=== PATIENT | female | born 1965 | race Caucasian/White ===

== ENCOUNTER 2017-01-27 21:17 | Observation (INO) ==
--- NOTE | 2017-01-27 21:50 | Emergency Department Note ---
Disposition Clinical Impression: Palpitations Syncope Qualifiers: Syncope type: unspecified Qualified Code(s): R55 - Syncope and collapse Chest pain Qualifiers: Chest pain type: unspecified Qualified Code(s): R07.9 - Chest pain, unspecified Disposition: Admitted As Inpatient Condition: Good Referrals: Unassigned,Provider [Non-Partnered Physician] - Forms: ED Satisfaction Letter Time of Disposition: 23:46 General Adult HPI - General Chief complaint: ED Chest Pain Stated complaint: "CP/SOB/Syncope" Time Seen by Provider: 01/27/17 21:23 Nursing Notes Reviewed: Yes Vital Signs Reviewed: Yes - History of Present Illness HPI Narrative: Female patient presenting to the emergency department with a sudden onset of syncope prior to arrival here. [place] like her heart was racing she developed chest pain and then blacked out. Daughter states that she was able to feel pulsatile time she was out and she was able to arouse the patient with a deep sternal rub however she would quickly shut her eyes. - Related Data Home Medications Medication Instructions Recorded Confirmed HYDROcodone/Acet 5/325 mg [[place] 0.5 tab PO BID PRN 01/27/17 01/27/17 5-325 mg] Ibuprofen [Motrin] 200 mg PO Q4HR PRN 01/27/17 01/27/17 Allergies Allergy/AdvReac Type Severity Reaction Status Date / Time meperidine [From Demerol] Allergy Vomiting Verified 01/27/17 22:50 All systems ED: reviewed and negative except as stated. Constitutional: Reports: weakness (For 3 weeks.). Denies: fever, chills Cardiovascular: Reports: chest pain (Intermittent for the past week.), palpitations (Intermittent for the past week.), syncope (One episode today.). Denies: dyspnea on exertion Respiratory: Denies: cough, dyspnea Gastrointestinal: Reports: nausea (Associated with the syncope.). Denies: abdominal pain, vomiting Genitourinary: Denies: urgency, dysuria, frequency, hematuria Musculoskeletal: Denies: back pain, neck pain Integumentary: Denies: rash, abrasion Neurological: Denies: headache Past Medical History - Past Medical History Attestation: Yes The following information was validated with the patient. Medical history: Reports: GERD, other (SVT, possible ablation in the ) Surgical history: Reports: cholecystectomy, hysterectomy Psychiatric history: Reports: no psych history - Social History Smoking Status: Never smoker Smokeless Tobacco Status: No Alcohol use: Reports: none Drug use: Reports: none Physical Exam - General Limitations: no limitations General appearance: alert, in no apparent distress - Head Head exam: atraumatic, normocephalic - Eye Eye exam: Present: normal appearance. Absent: PERRL, EOMI - ENT ENT exam: normal exam, normal oropharynx, mucous membranes moist - Neck Neck exam: Present: normal inspection, full ROM, trachea midline - Chest Chest inspection: Present: normal inspection, symmetric chest wall rise - Extremities Exam Extremities exam: Present: normal inspection, full ROM, normal capillary refill. Absent: tenderness, pedal edema - Back Exam Back exam: Present: normal inspection, full ROM. Absent: tenderness, CVA tenderness (R), CVA tenderness (L) - Neurological Exam Neurological exam: Present: alert, oriented X3 - Psychiatric Psychiatric exam: Present: normal affect, normal mood - Skin Skin exam: Present: warm, dry, intact, normal color. Absent: rash, cyanosis Course Course Narrative: Female patient presenting to the emergency department with a several week history of generalized weakness. 1 week history of left-sided chest pain. States that she was sitting at her house talking to her daughter whenever she felt the chest pain and felt like her heart was fluttering. She then syncopized. Daughter states that she was able to arouse patient with a sternal rub and she had a pulse the whole time however she would not respond very well. He then called 911. Patient is alert and oriented 3 on my exam. She is acting appropriately. Daughter states that whenever he came into the ED sheet the patients speech was a little sluggish. So we got a CT of the patient's head. This was normal. Patient's chest x-ray was normal. Her lab work is grossly unremarkable. However she does have a history of SVT. She has no other cardiac history that she is aware of. We will admit patient to the hospital for new onset syncope associated with heart palpitations. Patient states she did take a 324 mg baby aspirin before she came in. - Reevaluation(s) Reevaluation #1: Patient's cardiac workup is normal. She has had no episodes of palpitations while she is here. We will admit patient for new onset syncope as well as palpitations. Patient is agreeable to admission. Time: 23:44 - Consultations Consultation #1: Dr Mac accepted patient in stable condition. Time: 23:45 Vital Signs Temperature 0 F L 01/27/17 21:24 Pulse Rate 90 01/27/17 21:24 Respiratory Rate 16 01/27/17 21:24 Blood Pressure 162/97 01/27/17 21:24 O2 Sat by Pulse Oximetry 100 01/27/17 21:24 Temperature 0 F L 01/27/17 21:24 Pulse Rate 89 01/27/17 22:55 Respiratory Rate 18 01/27/17 22:55 Blood Pressure 129/80 01/27/17 22:55 O2 Sat by Pulse Oximetry 98 01/27/17 22:55 Oxygen Delivery Oxygen Delivery Room Air Medical Decision Making - Medical Records Medical records reviewed: Yes I reviewed the patient's medical records. - Lab Data Lab results reviewed: Yes I reviewed the patient's lab results. Result diagrams: 01/27/17 22:06 01/27/17 22:06 Lab Results 01/27/17 01/27/17 01/27/17 Range/Units 22:06 22:06 22:06 WBC 7.3 (4.3-11.1) K/mcL RBC 4.75 (3.82-4.97) M/mcL Hgb 13.3 (11.5-15.4) g/dL Hct 40.3 (35.3-44.9) % MCV 84.8 (83.0-100.0) fL MCH 28.0 (28.0-33.3) pg MCHC 33.0 (31.6-35.5) g/dL RDW 13.9 (11.5-14.5) % Plt Count 224 (140-400) K/mcL MPV 11.0 (9.4-12.4) fL Immature Gran % 0.4 (0-4) % Seg Neutrophils % 56.4 % Lymphocytes % 32.5 % Monocytes % 8.1 % Eosinophils % 1.8 % Basophils % 0.8 % Neutrophils # 4.1 (1.6-8.9) K/mcL Lymphocytes # 2.4 (0.6-4.6) K/mcL Monocytes # 0.6 (0.0-1.3) K/mcL Eosinophils # 0.1 (0.0-0.6) K/mcL Basophils # 0.1 (0.0-0.2) K/mcL D-Dimer 302 (0-500) ng/mLFEU Sodium 142 (136-145) mEq/L Potassium 4.4 (3.5-4.5) mEq/L Chloride 106 (98-109) mEq/L Carbon Dioxide 27 (19-29) mEq/L BUN 12 (7-20) mg/dL Creatinine 0.81 (0.57-1.11) mg/dL Est GFR ( Amer) > 60 (> 60) Est GFR (Non-Af Amer) > 60 (> 60) BUN/Creatinine Ratio 15 (6-26) Glucose 104 H (70-99) mg/dL Calculated Osmolality 294 (280-300) Calcium 9.7 (8.6-10.8) mg/dL Troponin I (0-0.03) ng/mL // Range/Units 22:06 WBC (4.3-11.1) K/mcL RBC (3.82-4.97) M/mcL Hgb (11.5-15.4) g/dL Hct (35.3-44.9) % MCV (83.0-100.0) fL MCH (28.0-33.3) pg MCHC (31.6-35.5) g/dL RDW (11.5-14.5) % Plt Count (140-400) K/mcL MPV (9.4-12.4) fL Immature Gran % (0-4) % Seg Neutrophils % % Lymphocytes % % Monocytes % % Eosinophils % % Basophils % % Neutrophils # (1.6-8.9) K/mcL Lymphocytes # (0.6-4.6) K/mcL Monocytes # (0.0-1.3) K/mcL Eosinophils # (0.0-0.6) K/mcL Basophils # (0.0-0.2) K/mcL D-Dimer (0-500) ng/mLFEU Sodium (136-145) mEq/L Potassium (3.5-4.5) mEq/L Chloride (98-109) mEq/L Carbon Dioxide (19-29) mEq/L BUN (7-20) mg/dL Creatinine (0.57-1.11) mg/dL Est GFR ( Amer) (> 60) Est GFR (Non-Af Amer) (> 60) BUN/Creatinine Ratio (6-26) Glucose (70-99) mg/dL Calculated Osmolality (280-300) Calcium (8.6-10.8) mg/dL Troponin I 0.00 (0-0.03) ng/mL - Radiology Data Radiology results reviewed: Yes I reviewed the patient's radiology results. Chest X-Ray 01/27/17 21:25 IMPRESSION: No acute cardiopulmonary disease. D/ / Dane Ordoñez MD / Dane Ordoñez MD Interpreting Provider: Dane Ordoñez MD Head CT 01/27/17 21:25 IMPRESSION: No acute intracranial abnormality. D/ / Dane Ordoñez MD / Dane Ordoñez MD Interpreting Provider: Dane Ordoñez MD - EKG Data EKG #1 EKG attestation: Yes I reviewed and interpreted this EKG. EKG results narrative: Sinus tachycardia at a rate of 104. Pr interval 182. QRS 92. QT 342, QTC 402. No signs of acute ischemia. No signifigant changes since previous EKG dated . Attestation Statement - Attestation Attestation: I examined this patient and my medical decision-making was reviewed with the MOLD COOLER/PA/Advanced Practice Nurse/Resident Physician. I agree with the documented findings, disposition and treatment plan as described except to the extent set forth below. Patient emergency department with a chief complaint of chest pain. Family states they were sitting eating a chief complaint of chest pain. They state she went unresponsive shortly after. He has a history of SVT years ago. Family states that she is talking slower than normal. On examination she is pleasant conversant. She is mildly tachycardic. She does not appear to be in any distress. Lungs clear. Plan. Cardiac workup. ED workup is unremarkable. We will admit for further cardiac evaluation.
[2017-01-27 22:13] LABS: Basophils # 0.1 K/mcL (0.0-0.2); Basophils % 0.8 %; Eosinophils # 0.1 K/mcL (0.0-0.6); Eosinophils % 1.8 %; Hematocrit 40.3 % (35.3-44.9); Hemoglobin 13.3 g/dL (11.5-15.4); Immature Granulocytes % 0.4 % (0-4); Lymphocytes # 2.4 K/mcL (0.6-4.6); Lymphocytes % 32.5 %; Mean Corpuscular Volume 84.8 fL (83.0-100.0); Monocytes # 0.6 K/mcL (0.0-1.3); Monocytes % 8.1 %; Neutrophils # 4.1 K/mcL (1.6-8.9); Platelet Count 224 K/mcL (140-400); Red Blood Count 4.75 M/mcL (3.82-4.97); Red Cell Distribution Width 13.9 % (11.5-14.5); Segmented Neutrophils % 56.4 %
[2017-01-27 22:26] LABS: BUN/Creatinine Ratio 15 (6-26); Blood Urea Nitrogen 12 mg/dL (7-20); Calcium 9.7 mg/dL (8.6-10.8); Carbon Dioxide 27 mEq/L (19-29); Chloride 106 mEq/L (98-109); Glucose 104 mg/dL (70-99); Osmolality,Calculated 294 (280-300); Potassium 4.4 mEq/L (3.5-4.5); Sodium 142 mEq/L (136-145); eGFR For African Americans > 60 (> 60); eGFR For Non-African Americans > 60 (> 60)
[2017-01-28] MEDS ORDERED: Naloxone 0.4 MG/ML INJ IVP PRN (01:02)
--- NOTE | 2017-01-28 01:12 | Internal Med History&Physical ---
Date of Encounter: 01/28/17 Time of Encounter: 01:30 Assessment and Plan (1) Acute coronary syndrome Current visit: Yes Status: Acute Patient had new onset chest pains at rest, with radiation to the LUE. This is suspicious for a unstable angina/NSTEMI. Cardiac monitoring, trend troponins. Treat with aspirin and enoxaparin. Consider cardiology consultation (2) Syncope Current visit: Yes Status: Acute Pt had chest pain and syncope. Very suspicious for SVT / VT (apparently had pulse during this episode). Will obtain echocardiogra. Check TSH. Telemetry monitoring. Cardiology consultation. Qualifiers: Syncope type: unspecified Qualified Code(s): R55 - Syncope and collapse (3) Chest pain Current visit: Yes Status: Acute Suspicous for ACS / UA / NSTEMI Qualifiers: Chest pain type: unspecified Qualified Code(s): R07.9 - Chest pain, unspecified (4) Palpitations Current visit: Yes Status: Acute Possibly due to cardiac arrhythmia. Telemetry monitoring Internal Medicine - H&P: HPI Chief complaint: Chest pain Admitted From: Emergency Dept Plans for Post Hospital Care: Home History of present illness: Ms. Beckwith is a 51 year old female with past medical history significant for GERD, SVT in the . She reports intermittent left-sided chest pains, unrelated exertion for about 2 weeks. she was apparently sitting at her house talking to her daughter, when she felt the chest pain / pressure on the left side of chest, moderate in intensity, with radiation to the left upper extremity /numbness of the LUE and felt like her heart was fluttering. She felt lightheaded and apparently became unresponsive. Daughter, who was by the side held her and was able to arouse patient with a sternal rub and she had a pulse the whole time. Pt reports that she was not confused afterwards but felt that her LUE was numb. She reports exertional shortness of breath, recently and also reports feeling tired, associated with chest pain. She denies nausea or vomiting. She denies abdominal pain, dizziness, hematuria, bowel problems. She denies excess caffeine consumption prior to this episode. She was evaluated in the emergency department and CXR reported no acute cardio pulmonary disease; CT head showed no acute intracranial abnormality. Initiate troponin is negative. She is admitted to the hospitalist service for further management. Past Med Surg Social Fam HX - Past Medical History Medical history: GERD, other (SVT, possible ablation in the s) Psychiatric history: no psych history - Past Surgical History Surgical History: cholecystectomy, hysterectomy - Social History Smoking Status: Never smoker Smokeless Tobacco Status: No Alcohol use: none Drug use: none - Family History Mother History Unknown: Yes Living Status: Father Living Status: Hx Family Cardiac Disorders: Yes Internal Medicine - H&P: Meds HYDROcodone/Acet 5/325 mg [[place] 5-325 mg] 0.5 tab PO BID PRN 01/27/17 [History] Allergies meperidine [From Demerol] Allergy (Verified 01/27/17 22:50) Vomiting All Systems PM: A 10-system review of systems was performed and is negative for pertinent findings except as documented above in the HPI. - Constitutional Vitals: Temp Pulse Resp BP Pulse Ox 97.8 F 79 15 105/69 96 01/28/17 00:22 01/28/17 00:22 01/28/17 00:22 01/28/17 00:22 01/28/17 00:22 Exam: General: Not in acute distress at the time of my evaluation HEENT: Oral mucosa is moist. No conjunctival palor or scleral icterus Neck: No obvious neck swellings Lungs: Clear to auscultation Cardiac: Regular rate and rhythm. No significant murmurs. Mild left upper chest wall tenderness present Abdomen: Soft, non tender. Bowel sounds present Genitourinary: No calabrese catheter Neurological: Alert and oriented. No gross localizing deficits Psych: Not aggressive or agitated Extremities: mild leg edema Skin: No generalized rash Internal Med - H&P Results - Labs CBC & Chem 7: 01/27/17 22:06 01/27/17 22:06 - EKG Data -: EKG Interpreted by Myself EKG shows normal: sinus rhythm Rate: tachycardia - EKG Data EKG comments: QTc 402 ms 01/28/17 01:14 - Impressions ITS Impressions Chest X-Ray 01/27/17 21:25 IMPRESSION: No acute cardiopulmonary disease. D/ / Dane Ordoñez MD / Dane Ordoñez MD Interpreting Provider: Dane Ordoñez MD Head CT 01/27/17 21:25 IMPRESSION: No acute intracranial abnormality. D/ / Dane Ordoñez MD / Dane Ordoñez MD Interpreting Provider: Dane Ordoñez MD
[2017-01-28] MEDS ORDERED: *HR* HYDROcodone/Acet 5/325 mg TABLET PO PRN (01:13)
[2017-01-28] MEDS: *HR* Enoxaparin 100 MG/ML SYRINGE SQ SCH ×2 (05:59→17:21)
[2017-01-28 06:33] LABS: Hematocrit 38.5 % (35.3-44.9); Hemoglobin 12.8 g/dL (11.5-15.4); Mean Corpuscular HGB Conc 33.2 g/dL (31.6-35.5); Mean Corpuscular Hemoglobin 28.5 pg (28.0-33.3); Mean Corpuscular Volume 85.7 fL (83.0-100.0); Mean Platelet Volume 11.7 fL (9.4-12.4); Platelet Count 214 K/mcL (140-400); Red Blood Count 4.49 M/mcL (3.82-4.97); Red Cell Distribution Width 14.1 % (11.5-14.5)
[2017-01-28 06:37] LABS: Prothrombin Time 10.9 Seconds (9.4-12.1)
[2017-01-28 06:50] LABS: Chol/HDL Ratio 4.8 (0-4.9); Magnesium 2.3 mg/dL (1.6-2.6)
[2017-01-28 07:12] LABS: Thyroid Stimulating Hormone 3.002 mcIU/mL (0.350-4.840)
--- NOTE | 2017-01-28 09:41 | Cardiology Consult Note ---
<Fransico Mcdonnell - Last Filed: 01/28/17 12:34> Date of Encounter: 01/28/17 Time of Encounter: 10:00 Assessment and Plan (2) Chest pain Status: Acute Per Cardiology: Troponins negative 2. Echo showed preserved EF with normal wall motion. ECG with nonspecific changes in inferior leads. Per discussion with Dr. Sargent, we' ll proceed with exercise nuclear stress test. Further recommendations after stress test. Qualifiers: Chest pain type: unspecified Qualified Code(s): R07.9 - Chest pain, unspecified (3) Syncope Status: Acute Per Cardiology: Patient with self-reported history of basal depressor syncope any years ago. Telemetry reviewed with average heart rate 79, sinus rhythm, one brief episode of sinus tachycardia in the 120s to 130s. No significant events noted. TSH and electrolytes within normal limits. Systolic blood pressures in the 100s to 120s. Orthostatics completed with lying blood pressure 113/80 and heart rate 75 , sitting blood pressure 121/82 and heart rate 88, and standing blood pressure 119/89 and heart rate 104. Discussed and reviewed with Dr. Sargent, we'll give 1 L of fluid since had slight tachy response. Of note, reported history of SVT as well. No SVT noted on telemetry. We'll continue to monitor. Can consider Holter or event monitor at discharge. Qualifiers: Syncope type: unspecified Qualified Code(s): R55 - Syncope and collapse Discussion w patient/family: The assessment and plan as outlined above was discussed with the patient and/or family members who expressed understanding and agreement. All questions were answered. Thank you for involving us in the care of your patient. Please call with any questions. History of Present Illness Consult date: 01/28/17 Requesting physician: Carie Mac Consult reason: Syncope, CP Chief complaint: CP, Palps, Passed out History of present illness: Ms. Beckwith is a 51 year old female with a relevant past medical history of hyperlipidemia, asthma, and GERD. Patient also reports history of SVT and vasodepressor syncope from the . She denies any history of nicotine abuse. Reports family history of father with [place] in his 50s, however estranged. Cardiology consult for syncope and chest pain. Patient reports up until about 3-4 weeks ago her normal state of health. Reports treated by PCP with [facility] for bronchitis. Patient reports over the past 3-4 weeks has persistent dry nonproductive cough and overall increased fatigue.She denies any fever, chills, nausea, vomiting, diarrhea. Reports over the past few weeks has noticed intermittent episodes of chest pressure at rest as well. Patient reports yesterday evening while sitting in a chair she developed palpitations with chest tightness and short of breath. She reports her daughter came to check on her heart rate and patient "passed out". Daughter reports at that time heart rate was week and thready. Past Med Surg Social Fam HX - Past Medical History Attestation: Yes The following information was validated with the patient. Source: patient, old records reviewed, obtained from family Medical history: GERD, other (SVT, possible ablation in the ) Psychiatric history: no psych history - Past Surgical History Surgical History: cholecystectomy, hysterectomy - Social History Smoking Status: Never smoker Smokeless Tobacco Status: No Alcohol use: none Drug use: none - Family History Mother History Unknown: Yes Living Status: Father Living Status: Hx Family Cardiac Disorders: Yes Medications and Allergies HYDROcodone/Acet 5/325 mg [[place] 5-325 mg] 0.5 tab PO BID PRN 01/27/17 [History] Aspirin 81 mg PO DAILY #30 tab.chew 01/29/17 [Rx] Metoprolol XL (24 HR) Succ [Toprol Xl] 12.5 mg PO DAILY #15 tab.er.24h 01/29/17 [Rx] Allergies meperidine [From Demerol] Allergy (Verified 01/27/17 22:50) Vomiting All Systems Review: A 10-system review of systems was performed and is negative for pertinent findings except as documented above in the HPI. - Constitutional Constitutional: fatigue - Cardiovascular Cardiovascular: as per HPI, chest pain at rest, dyspnea at rest, palpitations, syncope - Respiratory Respiratory: cough Physical Examination Vital Signs, Last 4 Hours Temp Pulse Resp BP Pulse Ox 01/28/17 07:02 97.9 F 78 16 100/69 95 General: Conversant, No Apparent Distress HEENT: Atraumatic, Normocephaly, Mucus Membranes Moist Neck: No JVD, Normal carotid pulses Cardiac: Reg Rate and Rhythm, Normal S1 and S2, No Murmur Lungs: Normal Breath Sounds, No Wheeze, Rales, Rhonchi Neuro: Alert and responsive, No focal deficits noted Abdomen: Soft, Non-Tender Skin: No rashes noted on visualized skin Musculoskeletal: No Chest Wall Tenderness Extremities: No Edema, Normal Pulses Results 01/28/17 06:09 01/27/17 22:06 Lab Results Laboratory Tests 01/27/17 01/27/17 01/28/17 22:06 22:06 06:09 INR D-Dimer 302 Troponin I 0.00 0.00 LDL Cholesterol, Calc TSH 01/28/17 01/28/17 06:09 06:09 INR 1.0 D-Dimer Troponin I LDL Cholesterol, Calc 126 H TSH 3.002 Laboratory Tests 01/28/17 06:09 Magnesium 2.3 ITS Impressions Chest X-Ray 01/27/17 21:25 IMPRESSION: No acute cardiopulmonary disease. D/ / Dane Ordoñez MD / Dane Ordoñez MD Interpreting Provider: Dane Ordoñez MD Head CT 01/27/17 21:25 IMPRESSION: No acute intracranial abnormality. D/ / Dane Ordoñez MD / Dane Ordoñez MD Interpreting Provider: Dane Ordoñez MD Active Medications Acetaminophen/Hydrocodone Bitart ([place] 5-325 Mg) 0.5 tab PO BID PRN PRN Reason: Pain Stop: 07/30/17 01:14 EST Enoxaparin Sodium (Lovenox) 100 mg 1 mg/kg (100 mg) SQ Q12HR JOSE PRN Reason: Protocol Stop: 07/30/17 06:01 Last Admin: 01/28/17 05:59 Dose: 100 mg Naloxone HCl (Narcan) 0.4 mg IVP Q2MIN PRN PRN Reason: Opioid Reversal Stop: 07/30/17 01:03 EST - Imaging and Cardiology Chest Xray: report reviewed Stress Test: pending Echo: report reviewed - EKG Interpretation EKG results cardiology: personally reviewed (Sinus rhythm flipped T waves with mild ST depression noted in leads 3 and aVF-- reviewed with Dr. Sargent), other ( 24 hour telemetry reviewed with average heart rate 79, sinus rhythm, 1 episode of sinus tachycardia noted to the 120s to 130s.) Consult Discharge Plan - Plan Instructions: Metoprolol (By mouth), Aspirin (By mouth), Chest Pain (DC) Additional Instructions: Follow-up with primary care provider within one to 2 weeks, follow-up with cardiology as instructed. Keep heart rate and blood pressure log Referrals: [facility] [Provider Group] Raymond Rehman, [Primary Care Provider] - (The office will call you tomorrow to make a follow up appt.) Prescriptions: Aspirin 81 mg PO DAILY #30 tab.chew Metoprolol XL (24 HR) Succ [Toprol Xl] 12.5 mg PO DAILY #15 tab.er.24h <Romelia Sargent - Last Filed: 01/29/17 16:03> Date of Encounter: 01/29/17 Assessment and Plan Discussion w patient/family: The assessment and plan as outlined above was discussed with the patient and/or family members who expressed understanding and agreement. All questions were answered. Thank you for involving us in the care of your patient. Please call with any questions. History of Present Illness History of present illness: Ms. Beckwith is a 51 year old female All Systems Review: A 10-system review of systems was performed and is negative for pertinent findings except as documented above in the HPI. Results 01/28/17 06:09 01/27/17 22:06 - Attending Attestation I examined this patient and my medical decision-making was reviewed with the POLISHER AND BUFFER/PA/Advanced Practice Nurse/Resident Physician. I agree with the documented findings, disposition and treatment plan.
--- NOTE | 2017-01-28 12:26 | ECHO - Doppler Report ---
Echocardiogram Name: Trini Beckwith Date of Study: 01/28/2017 Date: 1965 Ht: 66.0 in Medical Record#: [id number] Age: 51 Wt: 224.0 lb Gender: Female BSA: 2.1 Order #: [id number] Location: [facility] Room #: [id number] Reading Physician: Romelia Sargent DO Dump Grader: TEODORO MonteT Ordering Physician: Arias Mac MD Primary Physician: Raymond Rehman DO Indications: Syncope Impressions: LVEF 65%. Normal left ventricular size and systolic function. There is evidence of mild diastolic dysfunction of the left ventricle. Normal right ventricular size and function. Mild mitral regurgitation. No pulmonary hypertension. Trivial pericardial effusion. No tamponade. Left Ventricular Wall Motion: Rest Echo Findings All wall segments showed normal motion. Findings: Study Quality * Technically adequate exam. ECG Findings * Normal sinus rhythm. Left Ventricle * Normal LV chamber size, wall thickness and function. * LVEF 65%. * Mild left ventricular diastolic dysfunction. Aorta * Normally sized aortic root. Left Atrium * Normal left atrial size. Mitral Valve * Normal mitral valve structure. * No mitral stenosis. * Mild mitral regurgitation. Aortic Valve * No aortic regurgitation. * Trileaflet aortic valve. * Normal aortic valve structure. * No aortic stenosis. Tricuspid Valve * Tricuspid valve not well visualized. * Trace tricuspid regurgitation. * Estimated RA pressure is 3 mmHg. * Estimated RVSP is 10 mmHg. * No pulmonary hypertension. Pulmonic Valve * Pulmonic valve is not well visualized. * No pulmonic stenosis. * No pulmonic regurgitation. Pulmonary Artery * Pulmonary artery not well visualized. Right Ventricle * Normal right ventricular structure and function. Right Atrium * Normal right atrial size. Interatrial Septum * No evidence of PFO by color Doppler. IVC * Normal IVC dimensions and inspiratory collapse. Pericardium * There is a trivial pericardial effusion present. History Measurements: BP: 100/ 69 2D Normal Values RVIDd: 2.60 cm <2.7 cm IVSd: 1.00 cm 0.6 - 1.0 cm LVIDd: 4.70 cm 3.7 - 5.6 cm LVPWd: 1.10 cm 0.6 - 1.1 cm LVIDs: 3.20 cm 1.5 - 3.6 cm AO: 2.50 cm < 4.0 cm LA: 3.40 cm 2.0 - 4.0cm %FS: 31.90 cm >25 % LA volume: 26 Mitral Valve Peak E:.56 m/sec Peak A:.81 m/sec E/A Ratio:0.7 Peak E' Lat [place]:6.34 cm/s Peak E' Med [place]:6.43 cm/s E/E' Lat Ratio:8.8 E/E' Med Ratio:8.6 Tricuspid Valve TV Regurg Peak Grad: 7.00mmHg TV Regurg Peak [place]: 1.36m/sec Updated by Romelia Sargent on 01/28/2017 12:20:04 PM electronically signed on 01/28/2017 12:20:57 PM with status of Final Wall Motion [place]: 1=Normal, 2=Hypokinesis, 3=Akinesis, 4=Dyskinesis, 5=Aneurysmal, 6=Hyperkinetic, X=Not Visualized (Blank)=Missing
[2017-01-28] MEDS ORDERED: 0.9 % Sodium Chloride 1,000 ML IVC SCH (12:45)
[2017-01-28] MEDS: Aspirin 81 MG TAB.CHEW PO SCH (16:06)
[2017-01-28] MEDS: Metoprolol XL (24 HR) Succ 25 MG TAB.ER.24H PO SCH (16:06)
[2017-01-28] MEDS ORDERED: *HR* Promethazine 25 MG/ML VIAL IVP PRN (17:57)
[2017-01-28] MEDS ORDERED: Ondansetron 4 MG/2 ML VIAL IVP PRN (17:57)
[2017-01-28] MEDS ORDERED: *HR* Morphine 2 MG/ML SYRINGE IVP PRN (17:57)
[2017-01-28] MEDS ORDERED: Acetaminophen 325 MG TABLET PO PRN (17:57)
--- NOTE | 2017-01-28 17:59 | Event Note ---
Date of Encounter: 01/28/17 Time of Encounter: 17:00 Patient seen and examined. On examination, patient sitting upright in bed conversing with her family. Patient endorses mild chest pain but states it has improved. She denies any nausea. Her shortness of breath. Chest x-ray negative. Head CT negative. Echocardiogram unremarkable with ejection fraction of 65% and mild diastolic dysfunction. Patient euvolemic on examination and denies shortness of breath. Cardiology is on board and her stress test was performed today. Plan is to evaluate stress test and possible need for electrophysiology consult tomorrow. Started on baby aspirin and beta luis felipe per cardiology. Patient updated on plan of care and denies concerns. She may eat until midnight. ITS Impressions Chest X-Ray 01/27/17 21:25 IMPRESSION: No acute cardiopulmonary disease. D/ / Dane Ordoñez MD / Dane Ordoñez MD Interpreting Provider: Dane Ordoñez MD Head CT 01/27/17 21:25 IMPRESSION: No acute intracranial abnormality. D/ / Dane Ordoeñz MD / Dane Ordoñez MD Interpreting Provider: Dane Ordoñez MD Echocardiogram impressions: LVEF 65%. Normal left ventricular size and systolic function. There is evidence of mild diastolic dysfunction of the left ventricle. Normal right ventricular size and function. Mild much regurgitation. No pulmonary hypertension. Trivial pericardial effusion. No tamponade.
[2017-01-29] MEDS: *HR* Enoxaparin 100 MG/ML SYRINGE SQ SCH (06:09)
[2017-01-29] MEDS: Metoprolol XL (24 HR) Succ 25 MG TAB.ER.24H PO SCH (08:16)
[2017-01-29] MEDS: Aspirin 81 MG TAB.CHEW PO SCH (08:17)
--- NOTE | 2017-01-29 09:22 | Nuclear Medicine Stress Report ---
Exercise Nuclear Stress Name: Trini Beckwith Date of Study: 01/28/2017 Date: 1965 Ht: 66.0 in Medical Record#: [id number] Age: 51 Wt: 225.0 lb Gender: Female Order #: [id number] Location: [facility] IP Room: 16 Supervising Provider: Fransico Mcdonnell CNP Reading Physician: Romelia Sargent DO Ordering Physician: Jennifer Sidhu CNP Primary Care Physician: Raymond Rehman DO Stress Technologist: Carin Valencia, ABHINAV [employer] Machine Adjuster: Pritesh Peralta Indications: Chest Pain, Syncope Impression: Perfusion imaging was negative for ischemia or infarct. Exercise ECG was negative for ischemia. Patient had chest pain during stress and recovery. Narrow complex dysrhythmia correlates with patient complaints of chest pain (see Findings). Gated EF = >70%. Stress Test Summary: Stress Test Type: Treadmill Protocol: Peter Baseline Information: Initial Heart Rate: 110 Blood Pressure: 116/80 Stress Information: Stress Time: 3 min 00 sec Test Terminated Due to (primary): Dizziness Maximum Blood Pressure: 150/98 Maximum Heart Rate: 172 Percent Maximum Heart Rate Achieved: 102 Double Product: 87215 METS Reached: 4.6 Symptoms: Chest pain, Dizziness, Fatigue Nuclear Summary: SPECT myocardial perfusion imaging using Tc99m Sestamibi given intravenously was performed at rest and following cardiac stress testing. The resting images were obtained following initial dose of 9.5 mCi. Following stress an additional dose of 27.4 mCi was given at peak exercise or 30 seconds post regadenoson infusion. Medication Given: Time Medication Dose Units Route Findings: Stress Note * Resting ECG demonstrated normal sinus rhythm with LAFB. There is a slurred upstroke of the QRS complex in V5-6 without LA shortening. * At 2:49 minutes into rest, the ECG demonstrates a narrow complex tachycardia rate 140 bpm. Gives the appearance of sinus tachycardia (see lead I). Then at 2:54 of rest, HR 150 bpm. This slows to 100 bpm at 3:13 into rest. Sinus arrhythmia is observed. Then during the first stage of the peter protocol, narrow complex tachycardia is observed at HR 160-170 bpm. This slows to sinus tachycardia. Differential should include atrial tachycardia vs a re-entrant rhythm. * Exercise ECG is negative for ischemia. * Patient had chest pain/pressure during stress. * The exercise capacity was poor. Hemodynamic responses * Normal hemodynamic responses to exercise. Study Quality * Study quality is good. Gated EF > 70% * Gated EF > 70%. Left Ventricle * The left ventricle is not dilated. NORMALS * Normal wall motion. * Normal segmental perfusion in stress. * Normal Segmental Perfusion in rest. TID * No evidence of transient ischemic dilatation. Lung Uptake * There is no evidence of increase lung uptake. Updated by Romelia Sargent on 01/29/2017 9:01:52 AM electronically signed on 01/29/2017 9:17:26 AM with status of Final
--- NOTE | 2017-01-29 09:38 | Cardiology Progress Note ---
Date of Encounter: 01/29/17 Time of Encounter: 07:45 Assessment and Plan (1) Palpitations Current Visit: Yes Status: Acute Per Cardiology: Of note, reported history of SVT. No SVT noted on telemetry. Episodes of palpitations reproduced yesterday prior to stress test and noted to show sinus tachycardia/atrial tachycardia at rest. ECGs from stress test prior to and during reviewed with Dr. Sargent and appears to show sinus tachycardia. Started on aspirin and beta luis felipe. No further events noted. Patient will follow up with EP for further evaluation and outpatient setting. Patient agreeable to plan and all questions answered. Cardiology will sign off, re-consult as needed , follow-up scheduled. (2) Chest pain Current Visit: Yes Status: Acute Per Cardiology: Troponins negative 0.00 x 3. Echo showed preserved EF with normal wall motion. ECG with nonspecific changes in inferior leads. Stress test with perfusion imaging negative. No further ischemic evaluation warranted at this time. Suspect chest pain caused by palpitations and tachycardia. Qualifiers: Chest pain type: unspecified Qualified Code(s): R07.9 - Chest pain, unspecified (3) Syncope Current Visit: Yes Status: Acute Per Cardiology: Patient with self-reported history of vasodepressor syncope many years ago. Telemetry reviewed with average heart rate 73, sinus rhythm, no significant events noted. Orthos negative other than mild tachy response. Recommend hydration. No carotid bruits noted. Systolic blood pressures in the 100s to 120s. Qualifiers: Syncope type: unspecified Qualified Code(s): R55 - Syncope and collapse Discussion w patient/family: The assessment and plan as outlined above was discussed with the patient and/or family members who expressed understanding and agreement. All questions were answered. Thank you for involving us in the care of your patient. Please call with any questions. Subjective Principal diagnosis: Tachycardia Interval history: Patient denies any recurrent chest pain, short of breath, palpitations overnight. Denies any new concerns or complaints. Objective Vital Signs, Last 4 Hours Temp Pulse Resp BP Pulse Ox 01/29/17 07:04 97.8 F 73 17 123/86 95 General: Conversant, No Apparent Distress HEENT: Atraumatic, Normocephaly, Mucus Membranes Moist Cardiac: Reg Rate and Rhythm, Normal S1 and S2, No Murmur Lungs: Normal Breath Sounds, No Wheeze, Rales, Rhonchi Neuro: Alert and responsive, No focal deficits noted Extremities: No Edema, Normal Pulses Results 01/28/17 06:09 01/27/17 22:06 Lab Results Laboratory Tests 01/27/17 01/28/17 01/28/17 22:06 06:09 11:50 Troponin I 0.00 0.00 0.00 Active Medications Acetaminophen (Tylenol) 650 mg PO Q6HR PRN PRN Reason: Mild Pain/Fever Stop: 07/30/17 17:58 Last Admin: 01/29/17 06:07 Dose: 650 mg Acetaminophen/Hydrocodone Bitart ([place] 5-325 Mg) 0.5 tab PO BID PRN PRN Reason: Pain Stop: 07/30/17 01:14 EST Aspirin (Aspirin) 81 mg PO DAILY JOSE Stop: 07/30/17 15:16 Last Admin: 01/29/17 08:17 Dose: 81 mg Enoxaparin Sodium (Lovenox) 100 mg 1 mg/kg (100 mg) SQ Q12HR JOSE PRN Reason: Protocol Stop: 07/30/17 06:01 Last Admin: 01/29/17 06:09 Dose: 100 mg Sodium Chloride (0.9 % Sodium Chloride) 1,000 mls @ 75 mls/hr IVC .[id number] JOSE Stop: 07/30/17 12:46 Last Admin: 01/28/17 12:46 Dose: 75 mls/hr Metoprolol Succinate (Toprol Xl) 12.5 mg PO DAILY JOSE Stop: 07/30/17 15:16 Last Admin: 01/29/17 08:16 Dose: 12.5 mg Morphine Sulfate (Morphine Sulfate) 4 mg IVP Q4HR PRN PRN Reason: Severe Pain Stop: 07/30/17 17:58 Naloxone HCl (Narcan) 0.4 mg IVP Q2MIN PRN PRN Reason: Opioid Reversal Stop: 07/30/17 01:03 EST Ondansetron HCl (Zofran) 4 mg IVP Q6HR PRN; Protocol PRN Reason: nausea and vomiting-option A Stop: 07/30/17 17:58 Promethazine HCl (Phenergan) 12.5 mg IVP Q6HR PRN PRN Reason: Nausea And Vomiting- option B Stop: 07/30/17 17:58 - Imaging and Cardiology Stress Test: report reviewed Echo: report reviewed - EKG Interpretation EKG results cardiology: other (Telemetry reviewed with average heart rate the past 12 hours 73, sinus rhythm, no events noted.) Consult Discharge Plan - Plan Referrals: Raymond Rehman DO [Primary Care Provider] -
[2017-01-29 12:09] VITALS: BP 100/65
--- NOTE | 2017-01-29 13:47 | Discharge Summary ---
Date of Encounter: 01/29/17 Time of Encounter: 13:00 - Discharge Diagnosis (1) Chest pain Priority: Primary Status: Resolved Qualifiers: Chest pain type: unspecified Qualified Code(s): R07.9 - Chest pain, unspecified (2) Syncope Priority: Primary Status: Acute Comments: No episodes while admitted. Telemetry reviewed without significant findings. Mild tachycardia with orthostatic vital signs. Patient was asymptomatic during this admission. Follow-up outpatient with cardiology. Qualifiers: Syncope type: unspecified Qualified Code(s): R55 - Syncope and collapse (3) Palpitations Priority: Primary Status: Resolved (4) Acute coronary syndrome Priority: Primary Status: Ruled-out - Discharge Medications Prescriptions: Aspirin 81 mg PO DAILY #30 tab.chew Metoprolol XL (24 HR) Succ [Toprol Xl] 12.5 mg PO DAILY #15 tab.er.24h Home Medications: HYDROcodone/Acet 5/325 mg [Drasco 5-325 mg] 0.5 tab PO BID PRN 01/27/17 [History] Aspirin 81 mg PO DAILY #30 tab.chew 01/29/17 [Rx] Metoprolol XL (24 HR) Succ [Toprol Xl] 12.5 mg PO DAILY #15 tab.er.24h 01/29/17 [Rx] Allergies/Adverse Reactions: Allergies meperidine [From Demerol] Allergy (Verified 01/27/17 22:50) Vomiting Procedures/tests Complete & Pending: Procedures Performed prior 72 hours Category Date Time Status NM rah perf SPECT multi [NM] Routine Exams 01/28/17 12:34 Taken EKG [ECG 12 lead ECG] [ECG] Routine Y 01/28/17 12:17 Completed EV echocardiogram Routine Y 01/28/17 01:06 Completed SP exercise nuclear stress Routine Y 01/28/17 12:33 Completed Date of admission: 01/27/17 23:50 Primary care physician: Raymond Rehman DO Consults: 01/28/17 01:06 Consult to Cardiology [CONS] Routine Comment: Consulting Provider: [facility] Reason for Consult: Syncope; possible ACS Call Completed: No Discharging clinician: Jennifer Sidhu Anticipated date of discharge: 01/29/17 - Patient Status Disposition: Home, Self-Care Condition: Good Functional capacity at discharge: independent ambulation Overall status at discharge: patient is back to baseline - Discharge Instructions Follow Up With: Raymond Rehman DO [Primary Care Provider] - (The office will call you tomorrow to make a follow up appt.) [facility] [Provider Group] Additional Instructions: Follow-up with primary care provider within one to 2 weeks, follow-up with cardiology as instructed. Keep heart rate and blood pressure log - Diet and Activity Activity: increase activity as tolerated Diet: low salt diet Hospital course: Ms. Beckwith is a 51 year old female with past medical history of GERD, SVT in the 1990s status post ablation. Patient presented to emergency room chief complaint left-sided chest pain not related to exertion and occurring for approximately 2 weeks. On the day of presentation, patient was sitting down speaking with her daughter when she felt chest pain and pressure on the left side of her chest that was moderate and radiated to her left upper extremity and associated with numbness of her left upper extremity. She also felt as if her heart was fluttering. She felt lightheaded and allegedly became unresponsive. Her daughter who was not with her stated that the patient was difficult to arouse with sternal rub but states that the patient had a pulse the entire time. Patient denies confusion after this event but felt that her left upper arm was numb. She also endorsed exertional dyspnea, increased fatigue associated with chest pain. She denied nausea or vomiting. She denied abdominal pain or bowel issues. She denied excessive caffeine consumption. Workup in the emergency department unremarkable. Chest x-ray negative. Head CT negative. Patient was admitted to the hospitalist service for further evaluation and management. Echocardiogram unremarkable with ejection fraction of 65% and mild diastolic dysfunction with trivial pericardial effusion without tamponade. Patient was euvolemic on examination throughout this admission. Patient denied chest pain or shortness of breath throughout this admission. EKG with nonspecific changes in the inferior leads. She had an exercise nuclear stress test that was negative for ischemia or infarct. Acute coronary syndrome ruled out-likely cause of chest pain palpitations and tachycardia. Cardiology was on board during this admission and recommended adding a beta luis felipe and a baby aspirin to her regimen. Prior to the initiation of her stress test, sinus tach was noted so cardiology recommends following up with EP outpatient. She was discharged home in stable condition with close outpatient follow-up recommended. She was also started to keep her heart rate and blood pressure log for her follow-up with cardiology. ITS Impressions Chest X-Ray 01/27/17 21:25 IMPRESSION: No acute cardiopulmonary disease. D/ / Dane Ordoñez MD / Dane Ordoñez MD Interpreting Provider: Dane Ordoñez MD Head CT 01/27/17 21:25 IMPRESSION: No acute intracranial abnormality. D/ / Dane Ordoñez MD / Dane Ordoñez MD Interpreting Provider: Dane Ordoñez MD Echocardiogram impressions: LVEF 65%. Normal left ventricular size and systolic function. There is evidence of mild diastolic dysfunction of the left ventricle. Normal right ventricular size and function. Mild much regurgitation. No pulmonary hypertension. Trivial pericardial effusion. No tamponade. Exercise nuclear stress test impression: Perfusion imaging was negative for ischemia or infarct. Exercise ECG was negative for ischemia. Patient had chest pain during stress and recovery. Narrow complex dysrhythmia correlates with patient's complaints of chest pain. Gated ejection fraction is greater than 70%. - Time Spent with Patient Total time spent providing and/or coordinating discharge services: - Constitutional Vitals: Temp Pulse Resp BP Pulse Ox 97.9 F 90 16 100/65 95 01/29/17 11:50 01/29/17 11:50 01/29/17 11:50 01/29/17 11:50 01/29/17 11:50 General appearance: Present: A&O X 3, pleasant, no acute distress, answers questions appropriately - Head Head exam: Present: atraumatic, normocephalic - Eye Eye exam: Present: PERRL, conjuntiva pink, sclera anicteric Pupils: Present: PERRL - Neck Neck exam general surgery: Present: supple, trachea midline. Absent: lymphadenopathy - Respiratory Respiratory exam: Present: CTAB. Absent: accessory muscle use, rales, respiratory distress, rhonchi, wheezes - Cardiovascular Cardiovascular exam: Present: RRR, +S1, +S2. Absent: diastolic murmur, gallop, rubs, systolic murmur - GI/Abdominal GI/Abdominal exam: Present: normal bowel sounds, soft, no peritoneal signs. Absent: distended, tenderness - Extremities Exam Extremities exam: Present: warm, radial pulses palpable and symetrical. Absent : calf tenderness, cyanotic, pedal edema - Neurological Exam Neurological exam: Present: alert, CN II-XII intact, normal gait, oriented X3, no focal deficits, strengths equal and symetr throughout. Absent: pronater drift, facial droop, speech deficit - Skin Skin exam: Present: dry, intact, normal color, warm
--- NOTE | 2017-01-29 17:55 | Electrocardiograph Report ---
[address] [place], [place] [address] Test Date: 2017-01-27 Pat Name: Trini Beckwith Department: 104 Room: 3B16 Gender: F Technical Data Analyst: HADLEY : 1965 Requested By: Diamond Gaxiola Order Number: [id number] Reading MD: Romelia Sargent Measurements Intervals [place] Rate: 104 P: 52 TN: 182 QRS: -11 QRSD: 92 T: 48 QT: 342 QTc: 402 Interpretive Statements SINUS TACHYCARDIA POSSIBLE LEFT ATRIAL ENLARGEMENT NONSPECIFIC ST \T\ T-WAVE ABNORMALITY ABNORMAL RHYTHM ECG Electronically Signed On 01-29-2017 17:53:25 EDT by Romelia Sargent
--- NOTE | 2017-01-29 17:58 | Electrocardiograph Report ---
[place] [address] Test Date: 2017-01-28 Pat Name: Trini Beckwith Department: 113 Room: 3B16 Gender: F Doctor Of Radiology: : 1965 Requested By: Fransico Mcdonnell Order Number: [id number] Reading MD: Romelia Sargent Measurements Intervals [place] Rate: 73 P: 52 WV: 176 QRS: 0 QRSD: 98 T: -11 QT: 385 QTc: 410 Interpretive Statements SINUS RHYTHM NONSPECIFIC T-WAVE ABNORMALITY Electronically Signed On 01-29-2017 17:56:45 EDT by Romelia Sargent
== END 2017-01-29 14:25 | disposition home or self-care (01) ==
LOC: EMEROO 21:17 → 3BNU 21:17
PROVIDERS: ADMIT Internal Medicine; ATTEND Nurse Practitioner Family